=== PATIENT | male | born 1940 | race African-American/Black ===

== ENCOUNTER 2019-07-28 16:26 | Emergency (ER) | payer OTHER ==
[~2019-07-28] VITALS: Ht 185.4 cm; Wt 113.0 kg
[~2019-07-28 16:26] MED LIST: AMLO5TAB88 PO; DILT120C88 PO; HUM10VIA6 SQ; LISI40TA4 PO; XAR15 PO
[2019-07-28 16:45] VITALS: BP 150/80
[2019-07-28] MEDS ORDERED: SODIUM CHLORIDE 0.9% 1,000 ML IV ONE (16:54)
== END 2019-07-28 17:03 | disposition left against medical advice (07) ==
LOC: ER 16:26
DX: E11.641 Type 2 diabetes mellitus with hypoglycemia with coma (principal); I10 Essential (primary) hypertension; I48.91 Unspecified atrial fibrillation; Z79.4 Long term (current) use of insulin; Z79.899 Other long term (current) drug therapy
CPT/HCPCS: 82962; 99283; J7030; 99284